=== PATIENT | female | born 1980 | race Hispanic/Latino ===

== ENCOUNTER → 2017-11-24 | Day surgery (SDC) | payer OTHER ==
[~2017-11-24] VITALS: Ht 157.5 cm; Wt 63.0 kg
[~2017-11-24] MED LIST: IBUPROFEN800 M1 PO; VITAMIN D2000 UNIT PO
--- NOTE | 2017-11-24 17:38 | Operative Report ---
Operative/Inv Procedure Report Surgery Date: 11/24/17 Name of Procedure: Bilateral breast reduction Pre-Operative Diagnosis: First hypertrophy Post-Operative Diagnosis: Breast hypertrophy Estimated Blood Loss: 50ml to 100ml (250) Surgeon/Fence Installer Helper: Bry Roach MD Anesthesia: general endotracheal tube Operative/Procedure Note Note: Patient was counseled Hummel procedure the alternatives the risks and expected outcomes and leads to request for surgical intervention to treat symptomatic macromastia. Severely the patient was given t's regards to cup size but definite visible permanent scarring possibly unsightly or symptomatic we talked about asymmetry numbness of the nipple areolar complex and the possibility of tissue loss fat necrosis loss of nipple areolar complex since it really or tissue. She was given an informed consent is [place]ian. The telecommunications project manager via the [employer] phone was used today to question the patient on her understanding of the consent forms and she stated she has no further questions. Informed consent was signed today in [place]olian. She was marked in the standing position for an inferior pedicle Paez pattern technique breast reduction. She was brought to the operating room placed supine on the table. Venodyne boots are placed and then general anesthesia was established intravenous antibiotics were given. A free pedicle Paez pattern technique was used by de-epithelializing the inferior pedicle of 10 cm. Segments were removed superiorly medially and laterally this was done bilaterally. She was put in the sitting position to assess nipple areolar complex location which was done with a ruler. 3 layer closure was carried out of the wounds. Ends dictation
== END ==
LOC: STS 02:32
DX: N62 Hypertrophy of breast (principal); M54.6 Pain in thoracic spine; E66.9 Obesity, unspecified; Z68.31 Body mass index [BMI] 31.0-31.9, adult
CPT/HCPCS: 81025; 88305; C9399; J0690; J2210; J2250